=== PATIENT | male | born 2000 | race African-American/Black ===

== ENCOUNTER 2023-10-29 13:33 | Emergency (ER) | payer OTHER ==
[2023-10-29 13:41] VITALS: BP 122/68; PULSE 81; RESP 18; TEMP 98.4; BMI 21.9
[2023-10-29] MEDS ORDERED: LIDOCAINE HCL 1%, 10 MG/ML (50 mL VIAL) SQ ONE (14:38)
[2023-10-29] MEDS ORDERED: LIDOCAINE HCL 1%, 10 MG/ML (20ML VIAL) ONE (14:40)
[2023-10-29] MEDS ORDERED: IBUPROFEN 600 MG TABLET (FP) PO ONE ×2 (14:59→15:06)
== END 2023-10-29 15:11 | disposition home or self-care (01) ==
LOC: JERFT 13:33
PROC: 0H9FXZZ Drainage of Right Hand Skin, External Approach (ICD-10-PCS; principal; 2023-10-29)
DX: L03.011 Cellulitis of right finger (principal)
CPT/HCPCS: 99283-25

== ENCOUNTER 2024-08-25 19:40 | Emergency (ER) | payer SELFPAY ==
[2024-08-25 19:45] VITALS: BMI 22.1
[2024-08-25] MEDS ORDERED: HALOPERIDOL LACTATE 5 MG/ML ONE (20:39)
[2024-08-25] MEDS: HALOPERIDOL LACTATE 5 MG/ML IM ONE (20:44)
[2024-08-25 20:50] LABS: BASO % 0.2 % (0-2.0); HEMATOCRIT 43.1 % (35.4-49); HEMOGLOBIN 14.8 GM/dL (11.7-16.9); LYMPH % 7.4 % (8-40); MCH 29.3 pg (25.7-33.7); MCHC 34.4 g/dl (32.0-35.9); MEAN CELL VOLUME 85.3 fl (80-96); MEAN PLT VOLUME 8.1 fl (7.5-11.1); MONO % 2.5 % (3.8-10.2); NEUT % 89.9 % (42.8-82.8); PLATELET COUNT 250 10^3/uL (134-434); RBC 5.05 M/mm3 (4.00-5.60); RDW 13.4 % (11.9-15.9); WHITE BLOOD COUNT 11.2 K/mm3 (4.0-10.0)
[2024-08-25] MEDS ORDERED: ONDANSETRON 4 MG/2 ML VIAL ONE (20:52)
[2024-08-25] MEDS ORDERED: ACETAMINOPHEN INJECTION 100 ML ONE (20:52)
[2024-08-25] MEDS: ONDANSETRON 4 MG/2 ML VIAL IVPUSH ONE (20:57)
[2024-08-25] MEDS: SODIUM CHLORIDE 0.9% 500 ML INFUS.BAG IV ONE (20:57)
[2024-08-25] MEDS ORDERED: FAMOTIDINE 20 MG/50 ML IVPB 20 MG/50 ML MG IVPB ONE (20:58)
[2024-08-25] MEDS: FAMOTIDINE 20 MG/50 ML IVPB 20 MG/50 ML MG IVPB ONE (21:01)
[2024-08-25 21:10] LABS: CHLORIDE 100 mmol/L (98-107); SODIUM 135 mmol/L (136-145)
[2024-08-25 21:13] LABS: ALBUMIN 4.8 g/dl (3.4-5.0); CALCIUM 10.5 mg/dL (8.5-10.1)
[2024-08-25 21:14] LABS: BLOOD UREA NITROGEN 12.6 mg/dL (7-18); CO2 25 mmol/L (21-32); GLUCOSE,RANDOM 135 mg/dL (74-106); MAGNESIUM 1.7 mg/dL (1.8-2.4)
[2024-08-25 21:16] LABS: SGPT/ALT 30 U/L (13-61)
[2024-08-25 21:17] LABS: CREATININE 1.1 mg/dL (0.55-1.3); SGOT/AST 29 U/L (15-37)
[2024-08-25 21:18] LABS: BILIRUBIN,TOTAL 1.8 mg/dL (0.2-1); TOT PROT 7.8 g/dl (6.4-8.2)
[2024-08-25 21:19] LABS: ALK PHOS 109 U/L (45-117)
[2024-08-25 21:32] LABS: ANION GAP 10 mmol/L (4-13); PHOSPHOROUS 0.8 mg/dL (2.5-4.9); POTASSIUM 2.9 mmol/L (3.5-5.1)
[2024-08-25] MEDS ORDERED: MAG HYDROX/AL HYDROX/SIMETH 30 ML UNIT-DOSE CUP ONE (21:40)
[2024-08-25] MEDS ORDERED: MAGNESIUM 1GM/D5W - 1 GM/100 ML IVPB IVPB ONE (21:40)
[2024-08-25] MEDS ORDERED: POTASSIUM CHLORIDE ORAL LIQUID 20 MEQ/15 ML ONE (21:40)
[2024-08-25] MEDS: MAGNESIUM 1GM/D5W - 1 GM/100 ML IVPB IVPB ONE (21:48)
[2024-08-25] MEDS: POTASSIUM CHLORIDE ORAL LIQUID 20 MEQ/15 ML PO ONE (21:48)
[2024-08-25] MEDS: MAG HYDROX/AL HYDROX/SIMETH -MYLANTA- ORAL SUSPENSION PO ONE (21:48)
[2024-08-25] MEDS ORDERED: KCL 10 MEQ IVPB 10 MEQ/100 ML INFUS.BAG IVPB ONE (23:29)
[2024-08-25] MEDS ORDERED: KETOROLAC TROMETHAMINE 15 MG/ML VIAL ONE (23:38)
[2024-08-25] MEDS: KETOROLAC TROMETHAMINE 15 MG/ML VIAL IVPUSH ONE (23:44)
[2024-08-25] MEDS: KCL 10 MEQ IVPB 10 MEQ/100 ML INFUS.BAG IVPB SCH (23:45)
[2024-08-26 00:49] VITALS: TEMP 99.2
[2024-08-26] MEDS ORDERED: NAPH,MB-DB/K PH,MBDB POWDER PACKET ONE (01:19)
[2024-08-26] MEDS ORDERED: KCL 10 MEQ IVPB 10 MEQ/100 ML INFUS.BAG IVPB ONE (01:20)
[2024-08-26] MEDS: NAPH,MB-DB/K PH,MBDB POWDER PACKET PO ONE (01:39)
[2024-08-26 01:45] VITALS: BP 113/69; PULSE 76; RESP 18
== END 2024-08-26 02:36 | disposition home or self-care (01) ==
LOC: JER 19:40
PROC: 3E033GC Introduction of Other Therapeutic Substance into Peripheral Vein, Percutaneous Approach (ICD-10-PCS; principal; 2024-08-25)
PROC: 3E033GC Introduction of Other Therapeutic Substance into Peripheral Vein, Percutaneous Approach (ICD-10-PCS; 2024-08-25)
PROC: 3E033GC Introduction of Other Therapeutic Substance into Peripheral Vein, Percutaneous Approach (ICD-10-PCS; 2024-08-25)
PROC: 3E0333Z Introduction of Anti-inflammatory into Peripheral Vein, Percutaneous Approach (ICD-10-PCS; 2024-08-25)
PROC: 3E023GC Introduction of Other Therapeutic Substance into Muscle, Percutaneous Approach (ICD-10-PCS; 2024-08-25)
DX: R11.2 Nausea with vomiting, unspecified (principal); R10.9 Unspecified abdominal pain; R63.0 Anorexia
CPT/HCPCS: 36415; 80053; 83690; 83735; 84100; 85025; 99284-25